=== PATIENT | male | born 1950 | race Caucasian/White ===

== ENCOUNTER 2018-03-21 05:25 | Day surgery (SDC) | payer OTHER ==
[~2018-03-21] VITALS: Ht 177.8 cm; Wt 86.2 kg
--- NOTE | ~2018-03-21 | O ---
[facility] [address] [place] [address] OPERATIVE REPORT Name: MIRIAM WHALEY Room #: DEP [facility].#: [id number] Admission: 03/21/18 Attend Phys: Yahir Lopez MD Discharge: 03/21/18 Date of : 48 Report #: [id number] THIS REPORT FOR: //name// CC: Physician staff SABI Lopez DATE OF SERVICE: 03/21/2018 SURGEON: Yahir Lopez MD SAP BPC ARCHITECT: None. PREOPERATIVE DIAGNOSIS: Bilateral lower lid ectropion. POSTOPERATIVE DIAGNOSIS: Bilateral lower lid ectropion. OPERATION PERFORMED: Bilateral lower lid ectropion repair. ANESTHESIA: Local with IV sedation. COMPLICATIONS: None. INDICATIONS FOR PROCEDURE: This patient has bilateral acquired lower lid ectropion with chronic tearing and discharge. The current procedures are undertaken in order to improve the patient's visual function, lacrimal outflow, and level of comfort. Informed consent was obtained to include but not limit to the risk of loss of vision, bleeding, infection, scarring, failure to improve the problem and need for further surgery. DESCRIPTION OF OPERATION: The patient was taken to the operating room where 2% Xylocaine with epinephrine mixed with equal parts of 0.75% Marcaine with Wydase was administered transcutaneously and transconjunctivally to each lower lid and lateral canthal area. The patient was then prepped and draped in the usual sterile fashion. A Tutu clamp was then used to clamp the left lateral canthus following which a sharp canthotomy and cantholysis were performed. The tarsal strip was prepared laterally, removing the lash bearing portion of the redundant lid margin and the redundant tarsal plate. Hemostasis was achieved with a monopolar cautery, as it was throughout the case. The tarsal strip was then secured to the internal portion of the lateral orbital tubercle with two interrupted 5-0 Prolene sutures. The lateral canthal angle was sharply reformed as the subcutaneous structures and the skin were closed with multiple interrupted 6-0 plain gut sutures. [address] [address] OPERATIVE REPORT Name: MIRIAM WHALEY Room #: DEP [facility]..#: [id number] Admission: 03/21/18 Attend Phys: Yahir Lopez MD Discharge: 03/21/18 Date of : 48 Report #: [id number] Attention was then turned to the right side where the same procedure was performed. The wounds were cleaned and dressed with ophthalmic antibiotic ointment. The patient was then transported to the recovery area, having tolerated the procedure well with no anesthetic or operative complications being noted. <ELECTRONICALLY SIGNED> By: Yahir Lopez MD 03/25/18 0621 [id number] Yahir Lopez MD /nt
[~2018-03-21 05:25] MED LIST: CLARITIN10 MG PO; GARLIC500 MG PO; GLUCOSAMINE SU500 M1 PO; MULTIVITAMINS1 EAC4 PO; NEXIUM40 MG PO; OMEGA DHA92 MG PO; REFRESH LIQUIGE15 ML OPHTHALMIC
[2018-03-21 07:00] VITALS: BP 152/86
== END 2018-03-21 08:20 | disposition home or self-care (01) ==
LOC: TBA 05:25 → OR 05:25
DX: H02.105 Unspecified ectropion of left lower eyelid (principal); H02.102 Unspecified ectropion of right lower eyelid; K21.9 Gastro-esophageal reflux disease without esophagitis; Z98.41 Cataract extraction status, right eye; Z98.42 Cataract extraction status, left eye; Z98.890 Other specified postprocedural states; Z79.899 Other long term (current) drug therapy; Z96.1 Presence of intraocular lens; Z87.891 Personal history of nicotine dependence
CPT/HCPCS: 50010; 50101; 50386; 50398; 51636; 56527; 56531; 62110; 62850; 70005

== ENCOUNTER 2018-05-02 05:28 | Day surgery (SDC) | payer OTHER ==
[~2018-05-02] VITALS: Ht 177.8 cm; Wt 88.5 kg
--- NOTE | ~2018-05-02 | O ---
[facility] [address] [place] [address] OPERATIVE REPORT Name: MIRIAM WHALEY Room #: 150-6 [facility]..#: [id number] Admission: 05/02/18 Attend Phys: Yahir Lopez MD Discharge: Date of : 48 Report #: [id number] THIS REPORT FOR: //name// CC: Shaheed Jaime Physician staff SABI Lopez DATE OF SERVICE: 05/02/2018 SURGEON: Yahir Lopez MD PROPELLANT ASSEMBLER: None. PREOPERATIVE DIAGNOSIS: Bilateral upper lid dermatochalasia with superior visual field defect. POSTOPERATIVE DIAGNOSIS: Bilateral upper lid dermatochalasia with superior visual field defect. OPERATION PERFORMED: Bilateral upper lid functional blepharoplasty. ANESTHESIA: Local with IV sedation. COMPLICATIONS: None. INDICATIONS FOR SURGERY: This patient has acquired upper lid dermatochalasia with superior visual field loss both eyes because of excessive upper lid tissues to include skin and fat. Visual field testing demonstrates dense superior visual defects. Retesting with the upper lid elevated shows an improvement in visual field loss of over 30% and in excess of 12 degrees. The current procedures are undertaken in order to improve the patient's visual function. Informed consent was obtained to include but not limited to the loss of vision, bleeding, infection, scarring, failure to improve the problem and need for further surgery. DESCRIPTION OF OPERATION: The patient was taken to the operating room, where 2% Xylocaine with epinephrine mixed with equal parts of 0.75% Marcaine with Wydase was administered transcutaneously to each upper lid. The patient was then prepped and draped in the usual sterile fashion and a skin-marking pen was then utilized to outline an upper lid crease that was symmetrical on each side. Graefe forceps were then used to quantitate the redundant upper lid skin and it was similarly outlined. The incisions were then made with Patience scissors and a skin-muscle flap removed from each side with high-temp cautery. [address] [address] OPERATIVE REPORT Name: MIRIAM WHALEY Room #: 150-6 [facility]..#: [id number] Admission: 05/02/18 Attend Phys: Yahir Lopez MD Discharge: Date of : 48 Report #: [id number] was achieved with the monopolar cautery as it was throughout the case. The orbital septum was then identified and the central and medial fat pads were inspected. The redundant soft tissue was then sculpted with the monopolar cautery. The upper lid crease was then reformed with tightening of the pretarsal orbicularis muscle. The upper lid crease was then further reformed with multiple interrupted 6-0 chromic sutures. The skin was then closed with a running 6-0 plain gut suture. The wound was then cleaned and dressed with ophthalmic antibiotic ointment and a nonstick dressing. The patient was transported to the recovery area, where cold compresses were applied, having tolerated the procedure well with no anesthetic or operative complications being noted. By: [id number] Yahir Lopez MD /nt
[2018-05-02 07:00] VITALS: BP 148/74
== END 2018-05-02 08:30 | disposition home or self-care (01) ==
LOC: OR 05:28 → TBA 05:28 → OR 08:30
DX: H02.834 Dermatochalasis of left upper eyelid (principal); H02.831 Dermatochalasis of right upper eyelid; H53.40 Unspecified visual field defects; K21.9 Gastro-esophageal reflux disease without esophagitis; Z98.890 Other specified postprocedural states; Z79.899 Other long term (current) drug therapy; Z87.891 Personal history of nicotine dependence; Z98.42 Cataract extraction status, left eye; Z98.41 Cataract extraction status, right eye
CPT/HCPCS: 50010; 50101; 50386; 50398; 51636; 56531; 62110; 62850; 70005